=== PATIENT | male | born 1985 | race Caucasian/White ===

== ENCOUNTER 2017-06-23 11:51 | Emergency (ER) | payer OTHER ==
--- NOTE | 2017-06-23 13:33 | RAD ---
INDICATION: Left upper extremity pain evaluate for deep venous thrombosis. COMPARISON: There are no prior studies available for comparison. TECHNIQUE: Multiple real-time, color flow and Doppler tracings of the left upper extremity were obtained. FINDINGS: The axillary, brachial, basilic and cephalic veins all demonstrate normal compressibility, augmentation with compression and phasic response with respiration. The radial and ulnar veins demonstrate normal compressibility. The subclavian and internal jugular veins also demonstrate normal color flow imaging and phasic response with respiration. Evaluation of the internal jugular vein was limited. The patient was unable to lie flat due to pain. IMPRESSION: 1. NO EVIDENCE FOR DEEP VENOUS THROMBOSIS. 2. LIMITED EVALUATION OF THE LEFT INTERNAL JUGULAR VEIN NOTED.
--- NOTE | 2017-06-23 13:56 | ED ---
Upper Extremity Pain - HPI Summary HPI Summary: 32 male presents to ED with complaints of leftt shoulder and arm pain that began 1.5 weeks ago, while pushing and lifting heavy things at work. Patient states the pain has been increasing over the past couple of days. Has only taken aspirin on Wednesday which helped him some and Aleve last night that he states did not give him much relief. Patient was seen at [facility] on Wednesday, where he had blood taken and a CT, does not know of the results. Was offered muscle relaxer at this time however patient denied. Patient denies SOB, chest pain, difficulty breathing and other injuries/trauma. States the pain worsens when laying down and with movement of left shoulder/arm. Has FROM but does worsen pain. Admits to intermittent tingling in left fingertips. Denies numbness, erythema, ecchymosis and edema. No other complaints at this time. No other medications. No other PMHx. - History of Current Complaint Chief Complaint: EDExtremityUpper Stated Complaint: LT ARM/SHOULDER PAIN Time Seen by Provider: 06/23/17 12:16 Hx Obtained From: Patient Onset/Duration: Started Weeks Ago, Traumatic, Still Present, Worse Since Timing: Constant - worse with movement and on palpation Severity Initially: Mild Severity Currently: Moderate Pain Location: Shoulder - left, Arm - radiating into left arm Character: Sharp, Aching, Spasmodic Aggravating Factor(s): Movement, Lifting, Flexion Alleviating Factor(s): Rest, OTC Meds - aspirin on wednesday Associated Signs & Symptoms: Positive: Negative Related History: Dominant Hand Right - Risk Factors DVT Risk Factors: Recent Trauma - Allergies/Home Medications Allergies/Adverse Reactions: Allergies Allergy/AdvReac Type Severity Reaction Status Date / Time Sulfa Antibiotics Allergy Unknown Verified 06/23/17 11:57 Reaction Details PMH/Surg Hx/FS Hx/Imm Hx Endocrine/Hematology History: Denies: Hx Diabetes Cardiovascular History: Denies: Hx Hypertension Respiratory History: Denies: Hx Asthma Musculoskeletal History: Denies: Hx Scoliosis Neurological History: Denies: Hx Headaches, Other Neuro Impairments/Disorders Infectious Disease History: No Infectious Disease History: Denies: Traveled Outside the [place] in Last 30 Days - Family History Known Family History: Positive: None - Social History Occupation: Employed Full-time Alcohol Use: Daily - whiskey Alcohol Amount: 1 drink/day Substance Use Type: Reports: None Smoking Status (MU): Never Smoked Tobacco Review of Systems Constitutional: Negative Cardiovascular: Negative Respiratory: Negative Gastrointestinal: Negative Positive: Arthralgia, Myalgia - left UE/ shoulder Skin: Negative Positive: Paresthesia - left finger tips, intermittently All Other Systems Reviewed And Are Negative: Yes Physical Exam Triage Information Reviewed: Yes Vital Signs On Initial Exam: Initial Vitals Temp Pulse Resp BP Pulse Ox 98.1 F 68 16 153/96 96 06/23/17 11:57 06/23/17 11:57 06/23/17 11:57 06/23/17 11:57 06/23/17 11:57 Resp: 16 Vital Signs Reviewed: Yes Appearance: Positive: Well-Appearing, No Pain Distress, Well-Nourished Skin: Positive: Warm, Skin Color Reflects Adequate Perfusion, Dry. Negative: Cold, Cyanosis @, Pale, Erythema @ Head/Face: Positive: Normal Head/Face Inspection Eyes: Positive: Conjunctiva Clear ENT: Positive: Hearing grossly normal Neck: Positive: Supple, Nontender Respiratory/Lung Sounds: Positive: Clear to Auscultation, Breath Sounds Present. Negative: Rales, Rhonchi, Wheezes Cardiovascular: Positive: Normal, RRR, Pulses are Symmetrical in both Upper and Lower Extremities - 2+ radial b/l. Negative: Murmur, Rub Abdomen Description: Positive: Nontender Bowel Sounds: Positive: Present Musculoskeletal: Positive: Normal, Strength/ROM Intact, Pain @ - with flexion and ROM however is able, pain in left posterior shoulder/ trapezius muscle area. tender on palpation of left trapezius muscle. Negative: Limited @, Interruption @, Abnormal @ - no crepitus, step off, obvious deformity. no ecchymosis, edema or signs of trauma Neurological: Positive: Normal, Sensory/Motor Intact - sensation normal and intact, Alert, Oriented to Person Place, Time, Reflexes Intact, NV Bundle Intact Distally, Normal Gait Psychiatric: Positive: Affect/Mood Appropriate Diagnostics - Vital Signs Vital Signs Temp Pulse Resp BP Pulse Ox 06/23/17 12:29 98.2 F 74 18 152/98 96 06/23/17 11:57 98.1 F 68 1 153/96 96 - Laboratory Lab Statement: Any lab studies that have been ordered have been reviewed, and results considered in the medical decision making process. - Radiology left shoulder Xray Interpretation: No Acute Changes - vacuum phenomena Radiology Interpretation Completed By: Radiologist - Ultrasound No standard instances Ultrasound Interpretation: No Acute Changes - 1. NO EVIDENCE FOR DEEP VENOUS THROMBOSIS. 2. LIMITED EVALUATION OF THE LEFT INTERNAL JUGULAR VEIN NOTED due to patient not being able to lay flat due to pain Course/Dx - Course Course Of Treatment: US obtained and negative for DVT. although no risk factors due to pain ongoing and worsening had to be complete and rule out. CT of cervical spine was done 2 days ago at [facility] of left obtained results /records and was negative other than some mild left foraminal narrowing at C3- C4. Labs obtained and also unremarkable. Obtained xray of left shoulder at today 's visit and was negative. Reassured patient this is probably muscular versus ligamentous injury/strain. Possibly symptoms from mild narrowing in foraminal cervical spine. MRI may be necessary if symptoms persist or new symptoms develop. Follow up ortho if this does not improve. Given muscle relaxer, pain medication and NSAIDs. take for 5-7 days. RICE. Aware of worsening signs and symptoms to watch out for. Given sling for comfort, told to remove and gently stretch/work shoulder to avoid frozen shoulder - Diagnoses Differential Diagnosis/HQI/PQRI: Positive: Arthritis, Contusion, Strain, Sprain Provider Diagnoses: Muscle strain of left shoulder region, Left shoulder pain Discharge - Discharge Plan Condition: Stable Disposition: HOME Prescriptions: Cyclobenzaprine TAB* [Flexeril 10 MG TAB*] 10 mg PO BEDTIME #10 tab HYDROcodone/ACETAMIN 5-325 MG* [[place] 5-325 TAB*] 1 tab PO Q6H PRN #10 tab MDD 2 PRN Reason: Pain Patient Education Materials: Shoulder Pain (ED), Shoulder Sprain (ED) Referrals: Keenan Dickson DO [Primary Care Provider] - Keenan Workman MD [Medical Doctor] - Additional Instructions: Take prescribed medications as directed to help with pain and spasms, do not drive while taking these, you may take more than one flexeril (muscle relaxer) if desired, up to 2-3 times daily if desired and helps. Take ibuprofen or aleve as well for pain and inflammation every 6-8 hours for the next 5 days with food. Rest, ice, elevate and warm compresses, as discussed. Wear sling for comfort, remove multiple times daily and stretch/work out shoulder to avoid stiffness. Follow up with orthopedics, call and make an appointment if symptoms worsen, new symptoms develop or symptoms do not improve in 7 days. Follow up with PCP.
[2017-06-23] MEDS ORDERED: Cyclobenzaprine TAB* 10 MG PO ONE (14:09)
[2017-06-23] MEDS ORDERED: Ibuprofen TAB* 400 MG PO ONE (14:09)
[2017-06-23] MEDS ORDERED: HYDROcodone/ACETAMIN 5-325 MG* 1 TAB PO ONE (14:10)
--- NOTE | 2017-06-23 15:28 | RAD ---
INDICATION: Left shoulder pain. TECHNIQUE: 4 views of the left shoulder were obtained. FINDINGS: The bones are in normal alignment. No fracture is seen. Note is made of gas within the joint consistent with vacuum phenomena. Joint spaces appear maintained. No arthritic change is noted. IMPRESSION: NEGATIVE EXAM.
[2017-06-23 15:55] VITALS: BP 149/104
== END 2017-06-23 15:56 | disposition home or self-care (01) ==
LOC: ED 11:51
DX: S46.912A Strain of unspecified muscle, fascia and tendon at shoulder and upper arm level, left arm, initial encounter (principal); M25.512 Pain in left shoulder; X50.0XXA Overexertion from strenuous movement or load, initial encounter; Y92.9 Unspecified place or not applicable; Z88.2 Allergy status to sulfonamides
CPT/HCPCS: 99282; A9270-GY

== ENCOUNTER 2017-07-11 21:01 | Emergency (ER) | payer OTHER ==
[2017-07-12] MEDS ORDERED: Ketorolac INJ* 60 MG/2 ML VIAL IM ONE (03:01)
--- NOTE | 2017-07-12 03:07 | ED ---
Upper Extremity Pain - HPI Summary HPI Summary: Pt here w/ Lt UE pain x 2 weeks. Has this pain in trapezius, tricep and elbow region. 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 Denies numbness, tingling, weakness, swelling, restriction of movement. Pain is worse w / pushing, lifting. full flexion/extension of elbow joint. He reports this as an ache most notable proximal to dorsal elbow region. Was seen here at onset of pain and had shoulder XR along w/ DVT study - both negative for acute pathology. Has tried flexeril and norco w/o relief. At home has been trying ibuprofen/aleve w/ minimal relief. Also tried icy hot patch w/ minimal relief. No previous injury here nor neck pain/issues. Jobs are repetitive w/ UE movements. - History of Current Complaint Chief Complaint: EDExtremityUpper Stated Complaint: LT ARM PAIN Time Seen by Provider: 07/11/17 23:59 Hx Obtained From: Patient - Allergies/Home Medications Allergies/Adverse Reactions: Allergies Allergy/AdvReac Type Severity Reaction Status Date / Time Sulfa Antibiotics Allergy Unknown Verified 07/11/17 21:06 Reaction Details PMH/Surg Hx/FS Hx/Imm Hx Previously Healthy: Yes Endocrine/Hematology History: Denies: Hx Anticoagulant Therapy, Hx Blood Disorders, Hx Diabetes, Autoimmune Disease Cardiovascular History: Denies: Hx Aneurysm, Hx Cardiac Arrest, Hx Congenital Heart Disease, Hx Deep Vein Thrombosis, Hx Hypertension, Hx Myocardial Infarction Respiratory History: Denies: Hx Asthma, Hx Chronic Obstructive Pulmonary Disease (COPD), Hx Pneumonia Musculoskeletal History: Denies: Hx Arthritis, Hx Back Problems, Hx Bursitis, Hx Gout, Hx Orthopedic Injury, Hx Scoliosis, Hx Tendonitis, Hx of Fracture(s) Neurological History: Denies: Hx Headaches, Other Neuro Impairments/Disorders Infectious Disease History: No Infectious Disease History: Denies: Traveled Outside the [place] in Last 30 Days - Family History Known Family History: Positive: None - Social History Occupation: Employed Full-time Alcohol Use: Daily Alcohol Amount: 1 drink/day Hx Substance Use: No Substance Use Type: Reports: None Hx Tobacco Use: No Smoking Status (MU): Never Smoked Tobacco Review of Systems Constitutional: Negative Negative: Fever, Chills, Fatigue Cardiovascular: Negative Negative: Palpitations, Chest Pain Respiratory: Negative Negative: Shortness Of Breath, Cough Gastrointestinal: Negative Negative: Abdominal Pain, Vomiting, Diarrhea, Nausea Positive: no symptoms reported Musculoskeletal: Other - see HPI Skin: Negative Negative: Rash, Bruising Neurological: Negative Negative: Headache, Weakness, Paresthesia, Numbness, Syncope, Slurred Speech Psychological: Normal All Other Systems Reviewed And Are Negative: Yes Physical Exam Triage Information Reviewed: Yes Vital Signs On Initial Exam: Initial Vitals Temp Pulse Resp BP Pulse Ox 97.2 F 107 20 147/106 96 07/11/17 21:03 07/11/17 21:03 07/11/17 21:03 07/11/17 21:03 07/11/17 21:03 Vital Signs Reviewed: Yes Appearance: Positive: Well-Appearing, No Pain Distress, Obese Skin: Positive: Warm, Dry - no erythema, no ecchymosis over affected area Head/Face: Positive: Normal Head/Face Inspection Eyes: Positive: Normal, EOMI ENT: Positive: Hearing grossly normal, Pharynx normal - mucosa moist Neck: Positive: Supple, Nontender, No Lymphadenopathy. Negative: Nuchal Rigidity Respiratory/Lung Sounds: Positive: Breath Sounds Present Cardiovascular: Positive: Normal, Pulses are Symmetrical in both Upper and Lower Extremities - no edema Musculoskeletal: Positive: Strength/ROM Intact - cervical spine, shoulder, elbow , wrist, phalanges - only discomfort triggered is w/ Lt elbow full extension, Pain @ - Lt trapezius m, triceps tendon are TTP Neurological: Positive: Normal, Sensory/Motor Intact, Alert, Oriented to Person Place, Time, CN Intact II-III, Other - (-) Spurling test Psychiatric: Positive: Normal - [place] Coma Scale Coma Scale Total: 15 Diagnostics - Vital Signs Vital Signs Temp Pulse Resp BP Pulse Ox 07/11/17 21:03 97.2 F 107 20 147/106 96 - Laboratory Lab Statement: Any lab studies that have been ordered have been reviewed, and results considered in the medical decision making process. Course/Dx - Course Course Of Treatment: Suspect triceps tendonitis. Advise heat w/ stretches w/ NSAID's (w/ food) and rest from work with formal PT/massage. Pt agrees w/ plan. Does not appear to have acute cervical pathology, septic joint, gout or fx upon exam today - reviewed danger s/sx of when to return to ED. - Diagnoses Provider Diagnoses: Triceps tendonitis, Myofascial pain Discharge - Discharge Plan Condition: Stable Disposition: HOME Patient Education Materials: Tendinitis (ED) Forms: *Work Release Referrals: Keenan Dickson DO [Primary Care Provider] - Additional Instructions: You appear to have tedonitis of your tricep muscle along with myofascial tightness. Try heat and stretches with ibuprofen 600mg eery 6 hours with food. Also advised you follow-up with PCP this week or seek direct referral to physical therapy for consult and treatment. *If you develop numbness, weakness, swelling, return to ED
[2017-07-12 03:29] VITALS: BP 139/76
== END 2017-07-12 03:28 | disposition home or self-care (01) ==
LOC: ED 21:01
DX: M77.8 Other enthesopathies, not elsewhere classified (principal); M79.1 Myalgia; Z88.2 Allergy status to sulfonamides
CPT/HCPCS: 96372; 99282; J1885